=== PATIENT | male | born 1955 | race Caucasian/White ===

== ENCOUNTER 2019-04-18 13:52 | Emergency (ER) | payer MEDICARE, OTHER ==
[2019-04-18] MEDS ORDERED: Ondansetron 4 MG/2 ML SDV IVPUSH ONE (14:09)
[2019-04-18] MEDS ORDERED: Sodium Chloride 0.9% 1,000 ML IV SCH ×2 (14:15→16:15)
[2019-04-18] MEDS ORDERED: HYDROmorphone 0.5 MG/0.5 ML Syringe IVPUSH ONE ×2 (14:24→16:38)
[2019-04-18] MEDS ORDERED: Sodium Chloride 0.9% 10 ML Syringe FLUSH PRN (14:25)
--- NOTE | 2019-04-18 14:37 | EDM.PDOC ---
ED HPI GENERAL MEDICAL PROBLEM - General Chief Complaint: Abdominal Pain Stated Complaint: ABDOMINAL AND BACK PAIN Time Seen by Provider: 04/18/19 14:08 Source of Information: Reports: Patient, RN Notes Reviewed History Limitations: Reports: No Limitations - History of Present Illness INITIAL COMMENTS - FREE TEXT/NARRATIVE: Patient is a 63-year-old male who presents to the ED for evaluation of upper abdominal pain. Patient states that around noon this pain developed. His last food intake was a chicken sandwich at 11:30 before then. He also notes that he had a doughnut for breakfast at about 9:00 this a.m. Patient states that the pain does radiate straight to his back and would rate this at an 8 out of 10 today. He has tried some Rolaids but this has not helped much. He did not have any nausea or vomiting at home but did develop nausea and vomiting at time of triage. Patient notes he always has diarrhea and this is been present for about the past couple months. Patient notes that he was told at some points in his history that he had some gallstones. Patient notes that he is never exactly felt pain like this before. Upper Abdomen Pain Score (Numeric/FACES): 8 - Related Data Allergies Allergy/AdvReac Type Severity Reaction Status Date / Time rofecoxib [From Vioxx] Allergy Cannot Verified 04/18/19 17:01 Remember Home Meds: Home Meds Clopidogrel [Plavix] 75 mg PO DAILY 04/18/19 [History] Metoprolol Succinate 25 mg PO DAILY 04/18/19 [History] Rosuvastatin [Crestor] 20 mg PO DAILY 04/18/19 [History] Sertraline [Zoloft] 50 mg PO DAILY 04/18/19 [History] Past Medical History Cardiovascular History: Reports: High Cholesterol, Hypertension Musculoskeletal History: Reports: Other (See Below) Other Musculoskeletal History: back surgery; right thumb amputation Neurological History: Reports: CVA Other Neuro History: right-pt on plavix Psychiatric History: Reports: Depression Social & Family History - Tobacco Use Smoking Status *Q: Never Smoker - Caffeine Use Caffeine Use: Reports: Coffee, Tea - Recreational Drug Use Recreational Drug Use: No ED ROS GENERAL - Review of Systems Review Of Systems: See Below Constitutional: Denies: Fever, Chills HEENT: Reports: No Symptoms Respiratory: Reports: No Symptoms Cardiovascular: Reports: No Symptoms Endocrine: Reports: No Symptoms GI/Abdominal: Reports: Abdominal Pain (epigastrium that radiates to back), Diarrhea (chronic issue, not worse from normal), Nausea, Vomiting : Reports: No Symptoms Musculoskeletal: Reports: No Symptoms Skin: Reports: No Symptoms Neurological: Reports: No Symptoms Psychiatric: Reports: No Symptoms Hematologic/Lymphatic: Reports: No Symptoms Immunologic: Reports: No Symptoms ED EXAM, GI/ABD - Physical Exam Exam: See Below Exam Limited By: No Limitations General Appearance: Alert, WD/WN, No Apparent Distress Eyes: Bilateral: Normal Appearance Throat/Mouth: Normal Inspection, Normal Lips, Normal Teeth, Normal Gums, Normal Oropharynx, Normal Voice, No Airway Compromise Head: Atraumatic, Normocephalic Neck: Normal Inspection Respiratory/Chest: No Respiratory Distress, Lungs Clear, Normal Breath Sounds, No Accessory Muscle Use, Chest Non-Tender Cardiovascular: Normal Peripheral Pulses, Regular Rate, Rhythm, No Murmur GI/Abdominal Exam: Normal Bowel Sounds, Soft, No Distention, No Mass Extremities: Normal Inspection, Normal Capillary Refill Neurological: Alert, Oriented, Normal Cognition, No Motor/Sensory Deficits Psychiatric: Normal Affect, Normal Mood Skin Exam: Warm, Dry, Intact, Normal Color, No Rash Course - Vital Signs Last Recorded V/S: Last Vital Signs Temp 96.1 F 04/18/19 14:01 Pulse 70 04/18/19 14:49 Resp 18 04/18/19 14:49 BP 119/79 04/18/19 14:49 Pulse Ox 93 L 04/18/19 14:49 - Orders/Labs/Meds Orders: Active Orders 24 hr Category Date Time Status Peripheral IV Care [RC] . DIRECTED Care 04/18/19 14:25 Ordered UA W/MICROSCOPIC [URIN] Stat Lab 04/18/19 14:09 Ordered Sodium Chloride 0.9% [Normal Saline] 1,000 ml Med 04/18/19 14:15 Ordered IV ASDIRECTED Sodium Chloride 0.9% [Normal Saline] 1,000 ml Med 04/18/19 16:15 Active IV ASDIRECTED Sodium Chloride 0.9% [Saline Flush] Med 04/18/19 14:25 Ordered 10 ml FLUSH ASDIRECTED PRN Peripheral IV Insertion Adult [OM.PC] Stat Oth 04/18/19 14:25 Ordered Medication Orders Sodium Chloride (Normal Saline) 1,000 mls @ 999 mls/hr IV ASDIRECTED ECHO Last Admin: 04/18/19 14:35 Dose: 999 mls/hr Sodium Chloride (Normal Saline) 1,000 mls @ 500 mls/hr IV ASDIRECTED ECHO Last Admin: 04/18/19 16:10 Dose: 500 mls/hr Sodium Chloride (Saline Flush) 10 ml FLUSH ASDIRECTED PRN PRN Reason: Keep Vein Open Last Admin: 04/18/19 14:30 Dose: 10 ml Labs: Laboratory Tests 04/18/19 04/18/19 04/18/19 Range/Units 14:30 14:30 14:30 WBC 12.89 H (4.23-9.07) K/mm3 RBC 5.09 (4.63-6.08) M/mm3 Hgb 16.8 (13.7-17.5) gm/L Hct 49.0 (40.1-51.0) % MCV 96.3 H (79.0-92.2) fl MCH 33.0 H (25.7-32.2) pg MCHC 34.3 (32.2-35.5) g/dl RDW Std Deviation 44.5 H (35.1-43.9) fL Plt Count 273 (163-337) K/mm3 MPV 9.4 (9.4-12.3) fl Neutrophils % (Manual) 86 H (40-60) % Band Neutrophils % 2 (0-10) % Lymphocytes % (Manual) 6 L (20-40) % Atypical Lymphs % 0 % Monocytes % (Manual) 4 (2-10) % Eosinophils % (Manual) 1 (0.8-7.0) % Basophils % (Manual) 1 (0.2-1.2) Platelet Estimate Adequate RBC Morph Comment Normal Sodium 139 (136-145) mEq/L Potassium 3.8 (3.5-5.1) mEq/L Chloride 101 (98-107) mEq/L Carbon Dioxide 31 (21-32) mEq/L Anion Gap 10.8 (5-15) BUN 18 (7-18) mg/dL Creatinine 1.3 (0.7-1.3) mg/dL Est Cr Clr Drug Dosing 62.18 mL/min Estimated GFR (MDRD) 55 (>60) mL/min BUN/Creatinine Ratio 13.8 L (14-18) Glucose 161 H (80-115) mg/dL Calcium 10.4 H (8.5-10.1) mg/dL Total Bilirubin 2.1 H (0.2-1.0) mg/dL GGT 244 H (15-85) U/L AST 153 H (15-37) U/L ALT 75 H (16-63) U/L Alkaline Phosphatase 102 (46-116) U/L C-Reactive Protein 0.7 (<1.0) mg/dL Total Protein 7.9 (6.4-8.2) g/dl Albumin 3.9 (3.4-5.0) g/dl Globulin 4.0 gm/dL Albumin/Globulin Ratio 1.0 (1-2) Lipase 83365 H (73-393) U/L Meds: Medications Generic Name Dose Route Start Last Admin Trade Name Freq PRN Reason Stop Dose Admin Sodium Chloride 1,000 mls @ 999 mls/hr 04/18/19 14:15 04/18/19 14:35 Normal Saline IV 999 mls/hr ASDIRECTED ECHO Administration Sodium Chloride 1,000 mls @ 500 mls/hr 04/18/19 16:15 04/18/19 16:10 Normal Saline IV 500 mls/hr ASDIRECTED ECHO Administration Sodium Chloride 10 ml 04/18/19 14:25 04/18/19 14:30 Saline Flush FLUSH 10 ml ASDIRECTED PRN Administration Keep Vein Open Discontinued Medications Generic Name Dose Route Start Last Admin Trade Name Freq PRN Reason Stop Dose Admin Hydromorphone HCl 0.5 mg 04/18/19 14:24 04/18/19 14:45 Dilaudid IVPUSH 04/18/19 14:25 0.5 mg ONETIME ONE Administration Hydromorphone HCl 0.5 mg 04/18/19 16:38 04/18/19 16:44 Dilaudid IVPUSH 04/18/19 16:39 0.5 mg ONETIME ONE Administration Ondansetron HCl 4 mg 04/18/19 14:09 04/18/19 14:32 Zofran IVPUSH 04/18/19 14:10 4 mg ONETIME ONE Administration - Re-Assessments/Exams Free Text/Narrative Re-Assessment/Exam: 04/18/19 14:35 Patient presents to the ED for evaluation of abdominal pain. Did order a CBC, CMP, and GGT, lipase, urinalysis, abdominal pelvis CT without contrast to evaluate for gallstones per Dr. Orellana's recommendation, 4 mg Zofran, 0.05 mg Dilaudid and IV fluids for initial management. His pain is suspicious for gallbladder disease at this time. 04/18/19 15:[address] is done and is impressive for diffuse inflammatory change within and around the pancreas compatible with pancreatitis. There is a single calcified gallstone within the gallbladder that measures 6 mm. GGT is elevated at 244, AST elevated 153, ALT is elevated at 75, and his total bilirubin is elevated at 2.1. Lipase is still pending. His white blood cell count is also mildly elevated 12.89 with 86% neutrophils and 2% bands. Patient states that his pain is much more tolerable with the 0.5 mg of Dilaudid given. At this point in time the patient will likely need some sort of hospitalization, question is whether to transfer to [place] for definitive management or keep him here with the possibility of transferring if his situation deteriorates. We will wait for the lipase to results and consult GI at [facility] in [place]. 04/18/19 17:02 Patient's lipase is come back and is markedly elevated at 17,820. Dr. Reece ( Hospitalist) /Lali (GI) have accepted the patient for transfer and hospitalization at 1630. [facility] will provide transport the patient will be transferred via ambulance service to [place] for further management. Departure - Departure Time of Disposition: 17:03 Disposition: Home, Self-Care 01 Condition: Fair Clinical Impression: Pancreatitis Qualifiers: Chronicity: acute Pancreatitis type: biliary Acute pancreatitis complication: unspecified Qualified Code(s): K85.10 - Biliary acute pancreatitis without necrosis or infection - Discharge Information Referrals: Annabelle Mishra MD [Primary Care Provider] - Forms: ED Department Discharge - My Orders Last 24 Hours: My Active Orders 04/18/19 14:09 UA W/MICROSCOPIC [URIN] Stat 04/18/19 14:15 Sodium Chloride 0.9% [Normal Saline] 1,000 ml IV ASDIRECTED 04/18/19 14:25 Peripheral IV Care [RC] . DIRECTED Sodium Chloride 0.9% [Saline Flush] 10 ml FLUSH ASDIRECTED PRN Peripheral IV Insertion Adult [OM.PC] Stat 04/18/19 16:15 Sodium Chloride 0.9% [Normal Saline] 1,000 ml IV ASDIRECTED - Assessment/Plan Last 24 Hours: My Active Orders 04/18/19 14:09 UA W/MICROSCOPIC [URIN] Stat 04/18/19 14:15 Sodium Chloride 0.9% [Normal Saline] 1,000 ml IV ASDIRECTED 04/18/19 14:25 Peripheral IV Care [RC] . DIRECTED Sodium Chloride 0.9% [Saline Flush] 10 ml FLUSH ASDIRECTED PRN Peripheral IV Insertion Adult [OM.PC] Stat 04/18/19 16:15 Sodium Chloride 0.9% [Normal Saline] 1,000 ml IV ASDIRECTED
--- NOTE | 2019-04-18 15:27 | CT ---
CT abdomen and pelvis Technique: Multiple axial sections were obtained from above the dome of the diaphragm inferiorly through the pubic symphysis. Intravenous and oral contrast was not utilized. Comparison: No prior abdominal imaging. Findings: Visualized lung bases show nothing acute. Liver shows no discrete abnormality. Gallbladder contains a small calcified gallstone measuring 6 mm. Spleen appears within normal limits. Adrenal glands show no nodule. Diffuse inflammatory change is seen within and around the pancreas. No fluid collections of abscess or pseudocyst is seen. Aorta shows atherosclerotic calcification without aneurysm. No pelvic mass or adenopathy is seen. No free fluid is seen. No pelvic adenopathy is noted. Bone window settings were reviewed which shows scattered degenerative change throughout the spine. Previous lumbar spine surgery is noted. No acute osseous abnormality is appreciated. Impression: 1. Diffuse inflammatory change within and around the pancreas compatible with pancreatitis. 2. Single calcified gallstone within the gallbladder. 3. Other findings which are believed to be incidental and nonacute as noted above. Diagnostic code #3
== END 2019-04-18 17:20 | disposition home or self-care (01) ==
LOC: JD.ED 13:52
DX: K85.10 Biliary acute pancreatitis without necrosis or infection (principal); I10 Essential (primary) hypertension; Z86.73 Personal history of transient ischemic attack (TIA), and cerebral infarction without residual deficits; F32.9 Major depressive disorder, single episode, unspecified; Z79.899 Other long term (current) drug therapy; Z88.8 Allergy status to other drugs, medicaments and biological substances
CPT/HCPCS: 36415; 74176; 80053; 82977; 83690; 85007; 85027; 86140; 96361; 96374; 96375; 96376; 99285; J1170; J2405; J7040